=== PATIENT | male | born 1955 | race Caucasian/White ===

== ENCOUNTER 2016-12-13 09:47 | Day surgery (SDC) | payer BC ==
[2016-12-12 10:39] VITALS: BMI 39.7
[~2016-12-13 09:47] MED LIST: ACETAMINOPHEN TAB 500 MG TAB PO ONE; FAMOTIDINE 20 MG/2 ML VIAL IV ONE; ONDANSETRON 4 MG/2 ML VIAL IVP ONE; Pre Op ABX Message 1 EACH MISC MISCELLANE ONE
[2016-12-13 10:40] VITALS: TEMP 98
[2016-12-13] MEDS ORDERED: LACTATED RINGERS 1,000 ML IV ONE (10:54)
[2016-12-13] MEDS ORDERED: PROPOFOL 10 MG/ML 20 ML VIAL IV ONE (11:50)
[2016-12-13] MEDS ORDERED: SUCCINYLCHOLINE CHLORIDE VIAL 200 MG/10 ML VIAL IV ONE (11:50)
[2016-12-13] MEDS ORDERED: LIDOCAINE 1% INJ 10MG/ML (20 ML MDV) ONE (11:50)
[2016-12-13] MEDS ORDERED: fentaNYL (PF) 50 MCG/ML 2 ML AMP ONE (11:50)
[2016-12-13] MEDS ORDERED: ePHEDrine 50 MG/ML 1 ML AMP ONE (11:50)
[2016-12-13] MEDS ORDERED: MIDAZOLAM 2 MG/2 ML VIAL ONE (11:50)
[2016-12-13] MEDS ORDERED: OXYMETAZOLINE 0.05% NASL SPRAY 15 ML MISCELLANE ONE (12:25)
[2016-12-13] MEDS ORDERED: GELATIN SPONGE,ABSORB (SMALL) 1 EACH SPONGE TOPICAL ONE (12:25)
[2016-12-13] MEDS ORDERED: CIPROFLOXACIN-DEXAMETH 0.3-0.1% DROPS 7.5 ML BTL RIGHT EAR ONE (12:31)
--- NOTE | 2016-12-13 13:20 | P.OP ---
Date of Procedure: 12/13/16 Preoperative Diagnosis: Right tympanic membrane perforation with middle ear adhesions Postoperative Diagnosis: Same Procedure(s) Performed: Right tympanoplasty with lysis of middle ear adhesions and the use of a biodesign graft Anesthesia: MAGDA Surgeon: Marko Han Estimated Blood Loss (ml): 5 Pathology: none sent Condition: stable Disposition: PACU Indications for Procedure: Patient was found have a right tympanic membrane perforation. The ear canal extremely stenotic. Patient will have this hole closed. Operative Findings: Patient had an extremely stenotic ear canal and a fairly large central perforation. Multiple middle ear adhesions were noted they were lysed during surgery. Description of Procedure: The ear was identified as to the appropriate location. The ear was sterilely prepped and draped in the usual fashion. The postauricular region and the ear canal were injected with lidocaine 1% with epinephrine 1 100,000. Approximately 10 minutes were allowed wait for full vasoconstrictive effects to take place. Attention was then paid to the RIGHT ear canal where the perforation was identified. We utilized a high-powered Zeiss microscope with a variable focal length for this procedure and utilize this microscope throughout the entire procedure from this point on. A large central perforation was identified a large central perforation was identified. We removed the rim of the perforation with use of a house pick and biopsy forceps. We then elevated the tympanomeatal flap and the 12 and 6 o'clock position with use of a Real round knife and elevator. We entered the middle ear space and found adhesions. We lysed and remove the middle ear adhesions with a house pack. We filled the middle ear with Gelfoam. After the middle ear was filled with Gelfoam we took the BIODESIGN graft, cut to size, and placed as an underlay graft. We then placed the tympanic membrane back in position and filled the ear canal with Ciprodex soaked Gelfoam. We then placed a So pack in the outer ear canal. A Ignacia dressing was applied and the patient was taken to postanesthesia recovery in excellent condition. Excellent results were obtained.
[2016-12-13] MEDS: HYDROmorphone 1 MG/ML 1 ML SYRINGE IVP ONE ×2 (13:29→13:34)
[2016-12-13 13:51] VITALS: BP 141/87; PULSE 87; RESP 19
== END 2016-12-13 14:28 | disposition home or self-care (01) ==
LOC: OR 09:47
PROVIDERS: ATTEND Otolaryngology
DX: H72.01 Central perforation of tympanic membrane, right ear (principal); H74.11 Adhesive right middle ear disease; I10 Essential (primary) hypertension; H90.2 Conductive hearing loss, unspecified; H91.13 Presbycusis, bilateral; H93.13 Tinnitus, bilateral; E66.9 Obesity, unspecified; Z68.39 Body mass index [BMI] 39.0-39.9, adult; Z79.2 Long term (current) use of antibiotics; Z79.899 Other long term (current) drug therapy; Z91.041 Radiographic dye allergy status; Z91.013 Allergy to seafood
CPT/HCPCS: 69631; 69450; C1763; J2250; J0330; J2405; J2001; J3010; J1170; J2704

== ENCOUNTER 2016-12-15 18:26 | Emergency (ER) | payer BC ==
[2016-12-15 18:42] VITALS: BP 196/93; PULSE 55; RESP 16; TEMP 98.5
[2016-12-15] MEDS ORDERED: CEPHALEXIN 500 MG CAP PO STA (19:25)
--- NOTE | 2016-12-15 19:31 | ED ---
Skin/Abscess/FB HPI - General Chief complaint: Skin/Abscess/Foreign Body Stated complaint: left arm/elbow swelling and stiff post op Time Seen by Provider: 12/15/16 18:59 Source: patient Mode of arrival: ambulatory Limitations: no limitations - History of Present Illness Initial comments: Patient is a 61-year-old male with medical history significant for right ear surgery 2 days ago as an outpatient. Patient states that this morning he noticed a red streak running up his left arm from where he had an IV inserted during his hospital stay. Patient complains of minimal soreness to site. Patient denies chills, fevers, nausea, vomiting, shortness of breath, chest pain, abdominal pain, numbness or tingling. Patient states he was prescribed Augmentin after surgery for prophylactic coverage. No treatment prior to arrival. - Related Data Home Medications Medication Instructions Recorded Confirmed Nebivolol HCl [Bystolic] 10 mg PO DAILY 12/12/16 12/13/16 Previous Rx's Medication Instructions Recorded Amoxicillin/Potassium Clav 1 each PO Q12HR #20 tab 12/13/16 [Augmentin 875-125 Tablet] Hydrocodone/Acetaminophen [Oilton 1 - 2 each PO Q6HR PRN #50 tab 12/13/16 5-325] Cephalexin [Keflex] 500 mg PO Q6HR #40 cap 12/15/16 Allergies Allergy/AdvReac Type Severity Reaction Status Date / Time iodine Allergy Severe Anaphylaxis Verified 12/15/16 18:41 shellfish derived [Shellfish] Allergy Severe Anaphylaxis Verified 12/15/16 18:41 Review of Systems ROS Statement: Those systems with pertinent positive or pertinent negative responses have been documented in the HPI. ROS Other: All systems not noted in ROS Statement are negative. Past Medical History Past Medical History: Hypertension Additional Past Medical History / Comment(s): PAST HX OF GERD & STOMACH ULCERS. , OCCASIONAL COUGH FROM [facility] STATES INJURY TO RIGHT EARDRUM (2016). History of Any Multi-Drug Resistant Organisms: None Reported Additional Past Surgical History / Comment(s): EAR SURGERY A CHILD, ENDOSCOPY , right ear surgery Past Anesthesia/Blood Transfusion Reactions: No Reported Reaction, Motion Sickness Past Psychological History: No Psychological Hx Reported Smoking Status: Former smoker Past Alcohol Use History: Occasional Additional Past Alcohol Use History / Comment(s): SMOKED IN HIS 30'S. DRINKS 1 GLASS WINE WEEKLY. 2-3 BEERS PER MONTH. Past Drug Use History: None Reported - Past Family History Father Family Medical History: Cancer Additional Family Medical History / Comment(s): TUMOR IN ABDOMEN. General Exam - General Exam Comments Initial Comments: GENERAL: Pt awake and alert, well-appearing, well-nourished, and in no acute distress. HEAD: Atraumatic, normocephalic. EYES: Pupils equal, round, and reactive to light, extraocular movements intact, sclera anicteric, conjunctiva are normal. ENT: Dressing to right ear dry and intact. Moist mucous membranes. NECK:Normal range of motion, supple without lymphadenopathy or JVD. LUNGS: Breath sounds clear to auscultation bilaterally. No wheezes, rales, or rhonchi. HEART: Heart S1, S2, no S3 or S4. Regular rate. No murmurs, rubs or gallops. ABDOMEN: Soft, obese, nontender, nondistended, normoactive bowel sounds. EXTREMITIES: 2+ peripheral pulses. Phlebitis noted to left upper extremity extending from medial wrist to mid forearm. Tender to palpation. No drainage. NEUROLOGICAL: Pt oriented x 3. Cranial nerves II through XII grossly intact. Strength and sensation grossly intact. PSYCH: Normal mood, normal affect. SKIN: Warm, dry, intact. Normal turgor. No rashes or lesions. Limitations: no limitations Course Vital Signs 12/15/16 18:38 Temperature 98.5 F Pulse Rate 55 L Respiratory 16 Rate Blood Pressure 196/93 O2 Sat by Pulse 98 Oximetry Medical Decision Making - Medical Decision Making Phlebitis to left upper extremity suspect secondary to previous IV start. Patient given prescription for Keflex. Wound care instructions provided. Patient instructed to discontinue Augmentin and update Dr. Han on discontinuation of antibiotic. Patient agrees to treatment plan. Patient instructed to return to the emergency department if symptoms do not improve or get worse. Discharge instructions and return parameters reviewed. Disposition Clinical Impression: Phlebitis of arm Disposition: HOME SELF-CARE Condition: Good Instructions: Superficial Thrombophlebitis (ED) Additional Instructions: Continue Keflex 500 mg 4 times a day for 10 days. Discontinue Augmentin. Apply warm compresses to arm 3-4 times a day for 10-15 minutes. May take Motrin if okay by Dr. Han. Continue Oilton for pain as needed. Please return to the emergency department with symptoms of nausea, vomiting, fevers, increased pain, or increased swelling. Follow-up with primary care physician as directed. Prescriptions: Cephalexin [Keflex] 500 mg PO Q6HR #40 cap Referrals: Wei Blackwood DO [Primary Care Provider] - 1-2 days Time of Disposition: 19:31
== END 2016-12-15 20:11 | disposition home or self-care (01) ==
LOC: EC 18:26
DX: I80.8 Phlebitis and thrombophlebitis of other sites (principal); I10 Essential (primary) hypertension; Z87.891 Personal history of nicotine dependence; Z98.890 Other specified postprocedural states; Z79.899 Other long term (current) drug therapy
CPT/HCPCS: 99283

== ENCOUNTER 2020-01-01 22:47 | Emergency (ER) | payer BC ==
[2020-01-01 23:10] VITALS: RESP 18
[2020-01-01] MEDS ORDERED: diphenhydrAMINE 50 MG/ML 1 ML VIAL IVP STA (23:51)
[2020-01-01] MEDS ORDERED: FAMOTIDINE 20 MG/2 ML VIAL IV STA (23:51)
[2020-01-01] MEDS ORDERED: methylPREDNISolone SOD SUCCI 125 MG/2 ML VIAL IV STA (23:51)
[2020-01-01 23:56] LABS: Basophils # (A) 0.1 k/uL (0-0.2); Basophils % (A) 1 %; Eosinophils # (A) 0.1 k/uL (0-0.7); Eosinophils % (A) 2 %; HCT 50.6 % (39.0-53.0); HGB 16.6 gm/dL (13.0-17.5); Lymphocytes # (A) 2.3 k/uL (1.0-4.8); Lymphocytes % (A) 27 %; MCH 31.4 pg (25.0-35.0); MCHC 32.9 g/dL (31.0-37.0); MCV 95.5 fL (80.0-100.0); Mean Platelet Volume 7.4; Monocytes # (A) 0.5 k/uL (0-1.0); Monocytes % (A) 6 %; Neutrophils # (A) 5.3 k/uL (1.3-7.7); Neutrophils % (A) 63 %; Platelet Count 257 k/uL (150-450); RDW 13.4 % (11.5-15.5); WBC 8.5 k/uL (3.8-10.6)
[2020-01-01 23:57] LABS: Appearance,Urine Clear (Clear); Bilirubin,Urine Negative (Negative); Blood,Urine Negative (Negative); Color,Urine Light Yellow; Glucose,Urine (UA) Trace (Negative); Ketones,Urine Negative (Negative); Leukocyte Esterase,Urine Negative (Negative); Mucus,Urine Rare /hpf; Nitrite,Urine Negative (Negative); PH, Urine 5.5 (5.0-8.0); Protein,Urine 1+ (Negative); RBC,Urine <1 /hpf (0-5); Specific Gravity,Urine 1.015 (1.001-1.035); Squamous Epithelial Cell,Urine <1 /hpf (0-4); Urobilinogen,Urine <2.0 mg/dL (<2.0); WBC,Urine 1 /hpf (0-5)
[2020-01-02 00:04] LABS: Partial Thromboplastin Time 22.9 sec (22.0-30.0)
[2020-01-02 00:05] LABS: Albumin 3.9 g/dL (3.5-5.0); Calcium 9.5 mg/dL (8.4-10.2); Potassium 4.5 mmol/L (3.5-5.1); Total Bilirubin 0.4 mg/dL (0.2-1.3); Total Protein 6.6 g/dL (6.3-8.2)
--- NOTE | 2020-01-02 00:29 | CT ---
EXAMINATION TYPE: CT brain wo con for TPA DATE OF EXAM: 01/02/2020 COMPARISON: None HISTORY: AMS, r/o stroke CT DLP: 1071 mGycm Automated exposure control for dose reduction was used. Multiple axial sections were obtained of the brain with no contrast. Ventricles have normal size. There is no mass effect nor midline shift. There is no sign of intracran ial hemorrhage. Calvarium is intact. IMPRESSION: Negative head CT scan.
--- NOTE | 2020-01-02 00:38 | XR ---
EXAMINATION TYPE: XR chest 2V DATE OF EXAM: 01/02/2020 COMPARISON: NONE HISTORY: Altered mental status TECHNIQUE: 2 views FINDINGS: There is some linear density left lung base. Heart and mediastinum are normal. There are no hilar masses. There are chest leads. Bony thorax is intact. IMPRESSION: Subsegmental atelectasis left lung base. Normal heart.
--- NOTE | 2020-01-02 00:41 | CT ---
EXAMINATION TYPE: CT angio head neck DATE OF EXAM: 01/02/2020 COMPARISON: None HISTORY: ams, r/o stroke CT DLP: 939.7 mGycm Automated exposure control for dose reduction was used. CONTRAST: Performed with IV Contrast, patient injected with 65 mL of Isovue 370. There are 3-D post processed images. Images were obtained from the aortic arch to the vertex of the b rain. FINDINGS: There is normal branching pattern of the great vessels on the aortic arch. There is bilateral arteria l flow in the subclavian arteries. There is arterial flow in the common internal and external carotid arteries bilaterally. There is wide patency of the carotid artery bifurcations. There is bilateral a rterial flow in the vertebral arteries. Left vertebral artery is larger than the right. Basilar arter y fills mostly from the left side. There is arterial flow in the vertebrobasilar artery system. There is arterial flow in the anterior middle and posterior cerebral arteries. There is no mass effec t. There is no evidence of intracranial arterial stenosis. There is no sign of aneurysm or neovascula rity. There is normal contrast opacification of the venous sinuses. IMPRESSION: Negative CT angiogram of the neck. Negative CT angiogram of the brain.
--- NOTE | 2020-01-02 00:58 | ED ---
Neuro HPI - General Chief Complaint: Neuro Symptoms/Deficit Stated Complaint: Left side headache and pain Time Seen by Provider: 01/01/20 22:59 Source: patient Mode of arrival: wheelchair - History of Present Illness Is the patient presenting with stroke symptoms?: Yes Last Known Well Date: 01/01/20 Last Known Well Time: 22:00 Initial Comments: The patient is a 64 old male with past history of hypertension who presents to the emergency department with reported left-sided weakness. The patient states that he got up to go to the bathroom around 10 PM when he had sudden onset of left-sided weakness. He felt as if he had numbness and tingling to his left face with weakness in his left upper and lower extremity. He began having a left-sided headache as well. States the pain was mild. No issues with speech. Began having chills. He reported his symptoms to his who persuaded him to come into the emergency room for evaluation. States the symptoms were short in duration. Upon arrival to the emergency department his headache and left-sided weakness has completely resolved. He denies a previous history of TIA or CVA. States he normally does not get headaches. Denies any visual changes. No neck pain or stiffness. No recent fevers. Denies chiropractic manipulation of the neck. He denies any chest pain or shortness of breath with the episode. No back or flank pain. Denies abdominal pain. He does take Toprol for hypertension. He is suppose to take it twice daily however he has only been taking it once daily. There are no other alleviating, precipitating or modifying factors - Related Data Home Medications: Home Medications Medication Instructions Recorded Confirmed Metoprolol Tartrate 25 mg PO DAILY 01/01/20 01/01/20 Allergies/Adverse Reactions: Allergies Allergy/AdvReac Type Severity Reaction Status Date / Time iodine Allergy Severe Anaphylaxis Verified 01/01/20 23:10 shellfish derived [Shellfish] Allergy Severe Anaphylaxis Verified 01/01/20 23:10 Review of Systems ROS Statement: Those systems with pertinent positive or pertinent negative responses have been documented in the HPI. ROS Other: All systems not noted in ROS Statement are negative. General Exam General appearance: alert, in no apparent distress Head exam: Present: atraumatic, normocephalic, normal inspection Eye exam: Present: normal appearance, PERRL, EOMI. Absent: scleral icterus, conjunctival injection, periorbital swelling ENT exam: Present: normal exam, mucous membranes moist Neck exam: Present: normal inspection. Absent: tenderness, meningismus, lymphadenopathy Respiratory exam: Present: normal lung sounds bilaterally. Absent: respiratory distress, wheezes, rales, rhonchi, stridor Cardiovascular Exam: Present: regular rate, normal rhythm, normal heart sounds. Absent: systolic murmur, diastolic murmur, rubs, gallop, clicks GI/Abdominal exam: Present: soft, normal bowel sounds. Absent: distended, te nderness, guarding, rebound, rigid Extremities exam: Present: normal inspection, full ROM, normal capillary refill, other (2+ radial and ulnar pulses). Absent: tenderness, pedal edema, joint swelling, calf tenderness Back exam: Present: normal inspection Neurological exam: Present: alert, oriented X3, CN II-XII intact, reflexes normal, other (5 out of 5 muscle strength in bilateral upper extremities and lower extremities. Negative pronator drift. No dysdiadochokinesia. Finger to nose is symmetric bilaterally. [id number] is symmetric bilaterally. The patient is ambulatory without ataxia. No expressive aphasia or dysarthria) Psychiatric exam: Present: normal affect, normal mood Skin exam: Present: warm, dry, intact, normal color. Absent: rash Stroke MDM - Lab Data Result diagrams: 01/01/20 23:15 01/01/20 23:15 Lab Results 01/01/20 01/01/20 01/01/20 Range/Units 23:15 23:15 23:15 WBC 8.5 (3.8-10.6) k/uL RBC 5.30 (4.30-5.90) m/uL Hgb 16.6 (13.0-17.5) gm/dL Hct 50.6 (39.0-53.0) % MCV 95.5 (80.0-100.0) fL MCH 31.4 (25.0-35.0) pg MCHC 32.9 (31.0-37.0) g/dL RDW 13.4 (11.5-15.5) % Plt Count 257 (150-450) k/uL Neutrophils % 63 % Lymphocytes % 27 % Monocytes % 6 % Eosinophils % 2 % Basophils % 1 % Neutrophils # 5.3 (1.3-7.7) k/uL Lymphocytes # 2.3 (1.0-4.8) k/uL Monocytes # 0.5 (0-1.0) k/uL Eosinophils # 0.1 (0-0.7) k/uL Basophils # 0.1 (0-0.2) k/uL PT 10.0 (9.0-12.0) sec INR 1.0 (<1.2) APTT 22.9 (22.0-30.0) sec Sodium 139 (137-145) mmol/L Potassium 4.5 (3.5-5.1) mmol/L Chloride 105 (98-107) mmol/L Carbon Dioxide 27 (22-30) mmol/L Anion Gap 7 mmol/L BUN 30 H (9-20) mg/dL Creatinine 1.68 H (0.66-1.25) mg/dL Est GFR (CKD-EPI)AfAm 49 (>60 ml/min/1.73 sqM) Est GFR (CKD-EPI)NonAf 43 (>60 ml/min/1.73 sqM) Glucose 121 H (74-99) mg/dL Calcium 9.5 (8.4-10.2) mg/dL Total Bilirubin 0.4 (0.2-1.3) mg/dL AST 30 (17-59) U/L ALT 36 (4-49) U/L Alkaline Phosphatase 99 (38-126) U/L Troponin I (0.000-0.034) ng/mL Total Protein 6.6 (6.3-8.2) g/dL Albumin 3.9 (3.5-5.0) g/dL Urine Color Urine Appearance (Clear) Urine pH (5.0-8.0) Ur Specific [place] (1.001-1.035) Urine Protein (Negative) Urine Glucose (UA) (Negative) Urine Ketones (Negative) Urine Blood (Negative) Urine Nitrite (Negative) Urine Bilirubin (Negative) Urine Urobilinogen (<2.0) mg/dL Ur Leukocyte Esterase (Negative) Urine RBC (0-5) /hpf Urine WBC (0-5) /hpf Ur Squamous Epith Cells (0-4) /hpf Urine Mucus (None) /hpf 01/01/20 01/01/20 Range/Units 23:15 23:15 WBC (3.8-10.6) k/uL RBC (4.30-5.90) m/uL Hgb (13.0-17.5) gm/dL Hct (39.0-53.0) % MCV (80.0-100.0) fL MCH (25.0-35.0) pg MCHC (31.0-37.0) g/dL RDW (11.5-15.5) % Plt Count (150-450) k/uL Neutrophils % % Lymphocytes % % Monocytes % % Eosinophils % % Basophils % % Neutrophils # (1.3-7.7) k/uL Lymphocytes # (1.0-4.8) k/uL Monocytes # (0-1.0) k/uL Eosinophils # (0-0.7) k/uL Basophils # (0-0.2) k/uL PT (9.0-12.0) sec INR (<1.2) APTT (22.0-30.0) sec Sodium (137-145) mmol/L Potassium (3.5-5.1) mmol/L Chloride (98-107) mmol/L Carbon Dioxide (22-30) mmol/L Anion Gap mmol/L BUN (9-20) mg/dL Creatinine (0.66-1.25) mg/dL Est GFR (CKD-EPI)AfAm (>60 ml/min/1.73 sqM) Est GFR (CKD-EPI)NonAf (>60 ml/min/1.73 sqM) Glucose (74-99) mg/dL Calcium (8.4-10.2) mg/dL Total Bilirubin (0.2-1.3) mg/dL AST (17-59) U/L ALT (4-49) U/L Alkaline Phosphatase (38-126) U/L Troponin I <0.012 (0.000-0.034) ng/mL Total Protein (6.3-8.2) g/dL Albumin (3.5-5.0) g/dL Urine Color Light Yellow Urine Appearance Clear (Clear) Urine pH 5.5 (5.0-8.0) Ur Specific [place] 1.015 (1.001-1.035) Urine Protein 1+ H (Negative) Urine Glucose (UA) Trace H (Negative) Urine Ketones Negative (Negative) Urine Blood Negative (Negative) Urine Nitrite Negative (Negative) Urine Bilirubin Negative (Negative) Urine Urobilinogen <2.0 (<2.0) mg/dL Ur Leukocyte Esterase Negative (Negative) Urine RBC <1 (0-5) /hpf Urine WBC 1 (0-5) /hpf Ur Squamous Epith Cells <1 (0-4) /hpf Urine Mucus Rare H (None) /hpf - Medical Decision Making Upon arrival the patient was placed into room 3. A thorough history and physical exam was performed. The patient was promptly placed onto cardiac and pulse ox monitoring. NIH stroke scale was performed and the patient has a score of 0 at this time. Strength is equal in all 4 extremities. Patient states his headache is resolved at this time. I did recommend laboratory studies. Patient does have a contrast ALLERGY however he is pretreated and sent for CT of the head and neck. CBC is unremarkable. Coagulation studies are normal. Creatinine is 1.68 no previous laboratory studies to compare to. UA is negative. CT of the patient's brain is read by the radiologist as no mass effect, no evidence of intracranial arterial stenosis. No signs of aneurysms. Chest x-ray was also performed which demonstrates subsegmental atelectasis at the left lung base. The patient is reevaluated and continues to score negative on the stroke scale. I recommended treatment with aspirin however the patient refused. He states that he gets an upset stomach because of it. I discussed the benefit of the medication and the risks of declining. The patient is lucid, capable of making his own decisions and continues to refuse the medication. I did recommend hospital admission for evaluation by neurology. Patient agreed to this. I called and discussed the case with Dr. Mooney who refused admission. We do have teleneurology available for which the patient was comfortable seeing in the morning however anticipation is that they may recommend an MRI for which will be unavailable this weekend. I discussed this with the patient and he was agreeing to be transferred to the closest facility with neurology coverage as well as MRI. I discussed the case with Dr. Sánchez at [facility] who accepted transfer of the patient. He'll be transported by EMS. He is awaiting EMS arrival in stable condition 01/02/20 00:57 EKG demonstrates a normal sinus rhythm with a ventricular rate of 81. DC interval 186. QRS 96. QTC of 429. Significant baseline artifact in V1. No acute ST segment elevations. Q wave in lead 3. Past Medical History Past Medical History: Hypertension Additional Past Medical History / Comment(s): PAST HX OF GERD & STOMACH ULCERS., OCCASIONAL COUGH FROM [facility] STATES INJURY TO RIGHT EARDRUM (2016). History of Any Multi-Drug Resistant Organisms: None Reported Additional Past Surgical History / Comment(s): EAR SURGERY A CHILD, ENDOSCOPY, right ear surgery Past Anesthesia/Blood Transfusion Reactions: No Reported Reaction, Motion Sickness Past Psychological History: No Psychological Hx Reported Smoking Status: Former smoker Past Alcohol Use History: Occasional Past Drug Use History: None Reported - Past Family History Father Family Medical History: Cancer Additional Family Medical History / Comment(s): TUMOR IN ABDOMEN. Course Vital Signs 01/01/20 01/02/20 23:06 00:10 Temperature 98.7 F 98.5 F Pulse Rate 90 90 Respiratory 18 18 Rate Blood Pressure 161/109 165/90 O2 Sat by Pulse 98 100 Oximetry Disposition Clinical Impression: Left-sided weakness, TIA (transient ischemic attack), Cephalgia Disposition: OTHER INSTITUTION NOT DEFINED Condition: Stable Is patient prescribed a controlled substance at d/c from ED?: No Referrals: Wei Blackwood DO [Primary Care Provider] - 1-2 days - Out of Hospital Transfer - Req. Specs Out of Hospital Transfer - Requested Specifics: Other Emergency [facility] ([facility]
[2020-01-02 02:18] VITALS: BP 165/98; PULSE 80; TEMP 98
== END 2020-01-02 02:50 | disposition short-term general hospital (02) ==
LOC: EC 22:47
DX: G45.9 Transient cerebral ischemic attack, unspecified (principal); J98.11 Atelectasis; R68.83 Chills (without fever); I10 Essential (primary) hypertension; Z87.891 Personal history of nicotine dependence; Z91.041 Radiographic dye allergy status; Z91.013 Allergy to seafood; Z91.048 Other nonmedicinal substance allergy status; Z79.899 Other long term (current) drug therapy; Z53.29 Procedure and treatment not carried out because of patient's decision for other reasons
CPT/HCPCS: 36415; 93005; 80053; 84484; 85025; 85610; 85730; 81001; 71046; 70496; 70450; 70498; 99285; 96374; 96375 ×2; J1200; J2930; Q9967

== ENCOUNTER 2022-02-25 18:26 | Emergency (ER) | payer MEDICARE, BC ==
[2022-02-25 18:32] VITALS: TEMP 98.1
[2022-02-25 18:52] LABS: Appearance,Urine Clear (Clear); Bilirubin,Urine Negative (Negative); Blood,Urine Negative (Negative); Color,Urine Light Yellow; Glucose,Urine (UA) Negative (Negative); Ketones,Urine Negative (Negative); Leukocyte Esterase,Urine Negative (Negative); Mucus,Urine Rare /hpf; Nitrite,Urine Negative (Negative); Protein,Urine 1+ (Negative); RBC,Urine 3 /hpf (0-5); Specific Gravity,Urine 1.011 (1.001-1.035); Urobilinogen,Urine <2.0 mg/dL (<2.0); WBC,Urine <1 /hpf (0-5)
--- NOTE | 2022-02-25 20:29 | ED ---
General Adult HPI - General Chief complaint: Abdominal Pain Stated complaint: Urogenital Time Seen by Provider: 02/25/22 20:11 Source: patient Mode of arrival: ambulatory Limitations: no limitations - History of Present Illness Initial comments: Dictation was produced using [employer] dictation software. please excuse any grammatical, word or spelling errors. Chief Complaint: 67-year-old male past medical history of hypertension presents to the emergency department for hematuria History of Present Illness: 67-year-old male had 2 bouts of hematuria today. Patient states that it alarmed him. She states that he is also been having urinary frequency and urgency. States that he does have some mild dysuria. Patient denies any suprapubic pain. No flank pain. Patient does not have any urinary retention or low urinary stream. Patient has not had hematuria in the past. Is not taking any anticoagulation medications. Patient reports that his hematuria is positional and seems to be only no whenever he tries to sit down and urinate. He does not know sent hematuria when he stands urinate. The ROS documented in this emergency department record has been reviewed and confirmed by me. Those systems with pertinent positive or negative responses have been documented in the HPI. All other systems are other negative and/or no ncontributory. PHYSICAL EXAM: General Impression: Alert and oriented x3, not in acute distress HEENT: Normocephalic atraumatic, extra-ocular movements intact, pupils equal and reactive to light bilaterally, mucous membranes moist. Cardiovascular: Heart regular rate and rhythm Chest: Able to complete full sentences, no retractions, no tachypnea Abdomen: abdomen soft, non-tender, non-distended, no organomegaly Musculoskeletal: Pulses present and equal in all extremities, no peripheral edema Motor: no focal deficits noted Neurological: CN II-XII grossly intact, no focal motor or sensory deficits noted Skin: Intact with no visualized rashes Psych: Normal affect and mood exam: No testicular tenderness, no blood at the urethral meatus, no penile or scrotal abnormalities ED course: 67-year-old male presents to emergency Department with hematuria. Signs upon arrival are within acceptable limits. Urinalysis shows no blood or red blood cells. No findings to suggest ureter tract infection. Patient is well-appearing at bedside. He is given referral to urology. Return precautions discussed. - Related Data Home Medications Medication Instructions Recorded Confirmed Metoprolol Tartrate 25 mg PO DAILY 01/01/20 01/01/20 Allergies Allergy/AdvReac Type Severity Reaction Status Date / Time iodine Allergy Severe Anaphylaxis Verified 02/25/22 18:33 shellfish derived [Shellfish] Allergy Severe Anaphylaxis Verified 02/25/22 18:33 Review of Systems ROS Statement: Those systems with pertinent positive or pertinent negative responses have been documented in the HPI. ROS Other: All systems not noted in ROS Statement are negative. Past Medical History Past Medical History: Hypertension Additional Past Medical History / Comment(s): PAST HX OF GERD & STOMACH ULCERS., OCCASIONAL COUGH FROM BP [facility]., STATES INJURY TO RIGHT EARDRUM (2016). History of Any Multi-Drug Resistant Organisms: None Reported Additional Past Surgical History / Comment(s): EAR SURGERY A CHILD, ENDOSCOPY, right ear surgery Past Anesthesia/Blood Transfusion Reactions: No Reported Reaction, Motion Sickness Past Psychological History: No Psychological Hx Reported Smoking Status: Never smoker Past Alcohol Use History: Occasional Past Drug Use History: None Reported - Past Family History Father Family Medical History: Cancer Additional Family Medical History / Comment(s): TUMOR IN ABDOMEN. General Exam Limitations: no limitations Course Vital Signs 02/25/22 18:30 Temperature 98.1 F Pulse Rate 104 H Respiratory 20 Rate Blood Pressure 166/111 O2 Sat by Pulse 99 Oximetry Medical Decision Making - Lab Data Lab Results 02/25/22 Range/Units 18:41 Urine Color Light Yellow Urine Appearance Clear (Clear) Urine pH 7.0 (5.0-8.0) Ur Specific [place] 1.011 (1.001-1.035) Urine Protein 1+ H (Negative) Urine Glucose (UA) Negative (Negative) Urine Ketones Negative (Negative) Urine Blood Negative (Negative) Urine Nitrite Negative (Negative) Urine Bilirubin Negative (Negative) Urine Urobilinogen <2.0 (<2.0) mg/dL Ur Leukocyte Esterase Negative (Negative) Urine RBC 3 (0-5) /hpf Urine WBC <1 (0-5) /hpf Urine Mucus Rare H (None) /hpf Disposition Clinical Impression: Hematuria Disposition: HOME SELF-CARE Condition: Good Instructions (If sedation given, give patient instructions): Hematuria (ED) Is patient prescribed a controlled substance at d/c from ED?: No Referrals: Hemal Cheng MD [STAFF PHYSICIAN] - 1-2 days Time of Disposition: 20:29
[2022-02-25 20:58] VITALS: BP 154/94; PULSE 98; RESP 18
== END 2022-02-25 20:58 | disposition home or self-care (01) ==
LOC: EC 18:26
DX: R31.9 Hematuria, unspecified (principal); I10 Essential (primary) hypertension; Z91.013 Allergy to seafood; Z88.8 Allergy status to other drugs, medicaments and biological substances; Z79.899 Other long term (current) drug therapy
CPT/HCPCS: 81001; 99283